=== PATIENT | male | born 1955 | race Caucasian/White ===

== ENCOUNTER 2017-03-15 15:08 | Emergency (ER) | payer OTHER ==
[2017-03-15 15:51] VITALS: BP 177/89
--- NOTE | 2017-03-15 16:36 | EDM.PDOC ---
ED HPI GENERAL MEDICAL PROBLEM - General Chief Complaint: Upper Extremity Injury/Pain Stated Complaint: FELL HURT SHOULDER Time Seen by Provider: 03/15/17 16:32 Source of Information: Reports: Patient History Limitations: Reports: No Limitations - History of Present Illness INITIAL COMMENTS - FREE TEXT/NARRATIVE: pt fell and twisted his rt shoulder. He then landed on the shoulder. He now is not able to lift the arm. Duration: Hour(s): Location: Reports: Upper Extremity, Right Associated Symptoms: Reports: No Other Symptoms - Related Data Allergies Allergy/AdvReac Type Severity Reaction Status Date / Time No Known Allergies Allergy Verified 03/15/17 15:52 Home Meds: Home Meds Lisinopril 1 tab PO DAILY 03/15/17 [History] Past Medical History - Past Surgical History Musculoskeletal Surgical History: Reports: Hip Replacement Social & Family History - Tobacco Use Smoking Status *Q: Never Smoker Review of Systems - Review of Systems Review Of Systems: See Below Constitutional: Reports: No Symptoms Eyes: Reports: No Symptoms Ears: Reports: No Symptoms Nose: Reports: No Symptoms Mouth/Throat: Reports: No Symptoms Respiratory: Reports: No Symptoms Cardiovascular: Reports: No Symptoms GI/Abdominal: Reports: No Symptoms Genitourinary: Reports: No Symptoms Musculoskeletal: Reports: Other (pain in the t shoulder. Pt fell and twistyed hias arm. ) Skin: Reports: No Symptoms ED EXAM, GENERAL - Physical Exam Exam: See Below Free Text/Narrative:: Pt arrived with pain in the rt shoulder after a fall. He had xrays of the shoulder which was neg. Exam Limited By: No Limitations General Appearance: Alert, Anxious Ears: Normal TMs Nose: Nasal Deformity Throat/Mouth: Normal Inspection Head: Atraumatic Neck: Normal Inspection Respiratory/Chest: No Respiratory Distress Extremities: Other ( rt shoulder is not painful.-- to palpate but he is not able to lift the rt arm. ) Neurological: Alert, Oriented, Normal Cognition Course - Vital Signs Last Recorded V/S: Last Vital Signs Temp 36.1 C 03/15/17 15:59 Pulse 82 03/15/17 15:59 Resp 16 03/15/17 15:59 BP 177/89 H 03/15/17 15:59 Pulse Ox 98 03/15/17 15:59 - Orders/Labs/Meds Orders: Active Orders 24 hr Category Date Time Status Shoulder Comp Rt [CR] Stat Exams 03/15/17 15:59 Taken - Re-Assessments/Exams Free Text/Narrative Re-Assessment/Exam: 03/15/17 16:39 xray of the shoulder was neg for levar abnormalities. Departure - Departure Time of Disposition: 16:34 Disposition: Home, Self-Care 01 Condition: Fair Clinical Impression: Rotator cuff injury - Discharge Information Referrals: PCP,None [Primary Care Provider] - Forms: ED Department Discharge Care Plan Goals: send copy of the shoulder xray with the pt. ice packs to the shoulder, sling, motrin 600mg tid. See ortho first of next week. - My Orders Last 24 Hours: My Active Orders 03/15/17 15:59 Shoulder Comp Rt [CR] Stat - Assessment/Plan Last 24 Hours: My Active Orders 03/15/17 15:59 Shoulder Comp Rt [CR] Stat
--- NOTE | 2017-03-18 10:29 | CR ---
Right shoulder There is normal alignment at the glenohumeral as well as AC joints. There are no findings of fracture . There is degenerative spurring at the AC joint. Soft tissues are unremarkable. Impression: 1. Degenerative findings at the AC joint. 2. No acute findings.
== END 2017-03-15 17:53 | disposition home or self-care (01) ==
LOC: JP.ED 15:08
DX: S46.001A Unspecified injury of muscle(s) and tendon(s) of the rotator cuff of right shoulder, initial encounter (principal); Z96.649 Presence of unspecified artificial hip joint; Z79.899 Other long term (current) drug therapy; W19.XXXA Unspecified fall, initial encounter
CPT/HCPCS: 73030-26-RT; 73030-RT; 99284